=== PATIENT | male | born 2000 | race Caucasian/White ===

== ENCOUNTER 2024-09-13 15:07 | Inpatient (IN) | payer BC ==
[~2024-09-13] VITALS: Ht 172.7 cm; Wt 67.5 kg
[2024-09-13] MEDS: DexAMETHasone SOD PHOS 10MG/1ML VIAL INJ ONE (15:34)
--- NOTE | 2024-09-13 15:35 | ED.PDOC ---
SOB-HPI HPI Comments [age] year old male brought in by family complaining of shortness of breath. Patient reports productive cough with initially dark brown, now green sputum and progressively worsening shortness breath over the past 2 weeks, associated with sore throat, body aches and malaise. Patient states he took amoxicillin over a week ago for the symptoms, however they have not improved. He denies any fever, chest pain or extremity edema. Chief Complaint: Cough Time Seen by MD: 15:12 Primary Care Provider: CHRISSY Reviewed notes: Nurses Notes Information Source: Patient Mode of Arrival: Ambulatory Past Medical History PAST MEDICAL HISTORY: Denies Surgical History: Denies all surgeries Family History Family History: Reviewed,noncontributory to illness Social History Smoker: Non-Smoker Alcohol: Rarely Drugs: Denies Drug Use Lives In: Home All Other Systems: Reviewed and Negative (Comprehensive systems review obtained and negative except for what is stated in the HPI.) Physical Exam General Appearance: No Apparent Distress, Normal HEENT: PERRL/EOMI, Other (mild pharyngeal erythema. No edema, exudate or uvular deviation.) Neck: Full Range of Motion, Normal Inspection, Supple Respiratory: Decreased Breath Sounds, No Accessory Muscle Use, No Respiratory Distress Cardiovascular: No Edema, No JVD, Regular Rate/Rhythm Breast Exam: Deferred Gastrointestinal: Non Tender, Soft Genitalia: Deferred Pelvic: Deferred Rectal: Deferred Extremities: Normal inspection, Normal range of motion, Non-tender, No pedal edema Neurologic: Alert, No Motor Deficits, Normal Affect, Normal Mood, No Sensory Deficits Cerebellar Function: NOT DONE Reflexes: NOT DONE Skin: Dry, Pallor, Warm Lymphatic: NOT DONE Was a procedure done? Was a procedure done?: No Differential Dx Differential Diagnosis: Asthma, Bronchitis, CHF, COPD, Pneumonia, Pulmonary Embolism, URI, Other (Anemia, among others) X-Ray, Labs, Meds, VS Vital Signs Date Time Temp Pulse Resp B/P (MAP) Pulse Ox O2 Delivery O2 Flow Rate FiO2 09/13/24 18:32 72 18 124/78 (93) 99 09/13/24 16:41 78 18 126/71 (89) 98 09/13/24 16:30 18 98 Room Air* 0 21 09/13/24 15:47 18 99 Room Air* 0 21 09/13/24 15:19 97.5 83 18 120/72 (88) 98 Lab Test 09/13/24 17:09 09/13/24 15:45 Range/Units Influenza Type A Antigen Negative Negative Influenza Type B Antigen Negative Negative SARS-CoV-2 Antigen (Rapid) Negative NEGATIVE White Blood Count 8.5 4.4-10.8 10^3/uL Red Blood Count 5.20 4.5-5.90 10^6/uL Hemoglobin 15.7 13.5-17.5 g/dL Hematocrit 46.2 41.0-53.0 % Mean Corpuscular Volume 88.8 80.0-100.0 fL Mean Corpuscular Hemoglobin 30.2 28.0-32.0 pg Mean Corpuscular Hemoglobin Concent 34.0 32.0-36.0 g/dL Red Cell Distribution Width 13.2 11.8-14.3 % Platelet Count 179 140-450 10^3/uL Mean Platelet Volume 8.8 6.9-10.8 fL Neutrophils (%) (Auto) 60.2 37.0-80.0 % Lymphocytes (%) (Auto) 28.0 10.0-50.0 % Monocytes (%) (Auto) 9.6 0.0-12.0 % Eosinophils (%) (Auto) 1.9 0.0-7.0 % Basophils (%) (Auto) 0.3 0.0-2.0 % Neutrophils # (Auto) 5.1 1.6-8.6 10 ^3/uL Lymphocytes # (Auto) 2.4 0.4-5.4 10 ^3/uL Monocytes # (Auto) 0.8 0-1.3 10 ^3/uL Eosinophils # (Auto) 0.2 0-0.8 10 ^3/uL Basophils # (Auto) 0 0-0.2 10 ^3/uL Nucleated Red Blood Cells 0.1 % Sodium Level 144 136-145 mmol/L Potassium Level 3.6 3.5-5.1 mmol/L Chloride Level 108 H 98-107 mmol/L Carbon Dioxide Level 29 20-31 mmol/L Anion Gap 7 5-15 Blood Urea Nitrogen 16 9-23 mg/dL Creatinine 0.97 0.700-1.30 mg/dL Glomerular Filtration Rate Calc 110 >90 mL/min BUN/Creatinine Ratio 16.5 10.0-20.0 Serum Glucose 74 74-106 mg/dL Lactic Acid Level 1.1 0.4-2.0 mmol/L Calcium Level 10.5 H 8.7-10.4 mg/dL B-Type Natriuretic Peptide 8.93 0-100 pg/mL Current Medications Medications (Trade) Dose Ordered Sig/Murphy Route Start Time Stop Time Status Last Admin Ipratropium Fortson (Atrovent Medneb) 0.5 mg ONCE ONCE NEB 09/13/24 15:30 09/13/24 15:31 DC 09/13/24 16:31 Dexamethasone Sodium Phosphate (Decadron Injection) 10 mg ONCE ONCE IM 09/13/24 15:30 09/13/24 15:31 DC 09/13/24 15:46 Albuterol (Ventolin Medneb) 5 mg ONCE ONCE NEB 09/13/24 15:30 09/13/24 15:31 DC 09/13/24 16:31 Ceftriaxone Sodium 50 ml @ 100 mls/hr ONCE ONCE IV 09/13/24 18:15 09/13/24 18:44 DC 09/13/24 18:24 Azithromycin 250 ml @ 125 mls/hr ONCE ONCE IV 09/13/24 18:15 09/13/24 20:14 DC 09/13/24 18:29 Rhythm strip independently interpreted by me: Normal sinus rhythm, rate 83, no ectopy. PROCEDURE(s): CXRP - CHEST PORTABLE REASON: sob, cough ORDER NUMBER(s): [id number], ACCESSION NUMBER(s): [id number] CHEST RADIOGRAPH Indication: sob, cough Technique: Single frontal view of the chest was obtained COMPARISON: None FINDINGS: Lines and Tubes: None Lungs: Right middle lobe opacity suspicious for pneumonia Pleura: No effusion. No pneumothorax. Cardiomediastinal contours: Unremarkable Bones: Unremarkable IMPRESSION: 1. Right middle lobe opacity suspicious for pneumonia. X-Ray, Labs, Meds, VS Comment 24-year-old male with no significant past medical history complaining of productive cough and shortness a breath. Vitals unremarkable Exam remarkable for mild pharyngeal erythema and diminished breath sounds at both bases Rhythm strip independently interpreted by me: Normal sinus rhythm, rate 83, no ectopy. Chest x-ray IMPRESSION: 1. Right middle lobe opacity suspicious for pneumonia. CBC, basic metabolic panel, lactate, BNP, remarkable for any abnormality of acute significance Influenza and COVID tests pending Patient treated with the following in the ED: Albuterol 5 mg/Atrovent 0.5 mg nebulized, dexamethasone 10 mg IM, Rocephin 1 g IV, Zithromax 500 mg IV On re-evaluation, patient stated his symptoms had somewhat improved, vitals were stable. Plan is to hospitalize the patient for IV antibiotics and respiratory support as needed. Time of 1ST Reevaluation: 15:34 Reevaluation 1ST: Unchanged Time of 2ND Reevaluation: 16:41 Reevaluation 2ND: Improved Patient Education/Counseling: Diagnosis, Treatment, Need For Follow Up Family Education/Counseling: No Family Present Departure 1 Departure Time of Disposition: 16:41 Impression: Primary Impression: Pneumonia Qualified Codes: J18.9 - Pneumonia, unspecified organism Additional Impression: Bronchospasm Disposition: ADMITTED INPATIENT [facility] to[facility] Condition: Guarded Critical Care Note Critical Care Time?: No Stability Stability form required: No Heart Score Heart Score: Heart Score Response (Comments) Value History N/A 0 EKG N/A 0 Age N/A 0 Risk Factors N/A 0 Troponin N/A 0 Total 0 SYLWIA MYERS MD Sep 13, 2024 15:35
[2024-09-13] MEDS: DexAMETHasone SOD PHOS 10MG/1ML VIAL INJ IM ONE (15:46)
[2024-09-13 15:47] VITALS: RESP 18; O2SAT 99
[2024-09-13 15:54] LABS: Basophils # (auto) 0 10 ^3/uL (0-0.2); Basophils % (auto) 0.3 % (0.0-2.0); Eosinophils # (auto) 0.2 10 ^3/uL (0-0.8); Eosinophils % (auto) 1.9 % (0.0-7.0); Hematocrit 46.2 % (41.0-53.0); Hemoglobin 15.7 g/dL (13.5-17.5); Lymphocytes # (auto) 2.4 10 ^3/uL (0.4-5.4); Mean Corpuscular Hemoglobin 30.2 pg (28.0-32.0); Mean Corpuscular Volume 88.8 fL (80.0-100.0); Monocytes # (auto) 0.8 10 ^3/uL (0-1.3); Monocytes % (auto) 9.6 % (0.0-12.0); Neutrophils # (auto) 5.1 10 ^3/uL (1.6-8.6); Neutrophils % (auto) 60.2 % (37.0-80.0); Nucleated Red Blood Cells % 0.1 %; Platelet Count (auto) 179 10^3/uL (140-450); Red Cell Distribution Width 13.2 % (11.8-14.3); White Blood Cell 8.5 10^3/uL (4.4-10.8)
--- NOTE | 2024-09-13 15:55 | DVH ---
CHEST RADIOGRAPH Indication: sob, cough Technique: Single frontal view of the chest was obtained COMPARISON: None FINDINGS: Lines and Tubes: None Lungs: Right middle lobe opacity suspicious for pneumonia Pleura: No effusion. No pneumothorax. Cardiomediastinal contours: Unremarkable Bones: Unremarkable IMPRESSION: 1. Right middle lobe opacity suspicious for pneumonia.
[2024-09-13 16:03] LABS: Chloride 108 mmol/L (98-107); Potassium 3.6 mmol/L (3.5-5.1); Sodium 144 mmol/L (136-145)
[2024-09-13 16:04] LABS: Anion Gap 7 (5-15); Calcium 10.5 mg/dL (8.7-10.4); Carbon Dioxide 29 mmol/L (20-31)
[2024-09-13 16:09] LABS: BUN/Creatinine Ratio 16.5 (10.0-20.0); Blood Urea Nitrogen 16 mg/dL (9-23); Glucose 74 mg/dL (74-106)
[2024-09-13] MEDS: ALBUTEROL SULF 2.5 MG/0.5ML(0.5%) NEB SOLN NEB ONE (16:31)
[2024-09-13] MEDS: IPRATROPIUM BROM 0.5 MG/2.5ML INH SOL NEB ONE (16:31)
[2024-09-13 17:49] LABS: COVID19 ANTIGEN SOFIA FIA NEGATIVE (NEGATIVE); Rapid Influenza A Negative (Negative); Rapid Influenza B Negative (Negative)
[2024-09-13] MEDS: cefTRIAXone 1GM/50ML D5W 50 ML IV ONE (18:24)
[2024-09-13] MEDS: AZITHROMYCIN 500MG/ 250ML 250 ML IV ONE (18:29)
[2024-09-13] MEDS ORDERED: NITROGLYCERIN 0.4 MG SL TAB SL PRN (20:45)
[2024-09-13] MEDS ORDERED: DOCUSATE SOD 100 MG CAP PO PRN (20:45)
[2024-09-13] MEDS ORDERED: ACETAMINOPHEN 325 MG TAB PO PRN ×2 (20:45→22:30)
[2024-09-13] MEDS ORDERED: ONDANSETRON HCL 4 MG/2 ML VIAL IV PRN (20:45)
[2024-09-13] MEDS ORDERED: MORPHINE SULFATE INJ 2 MG/ml SYRG IV PRN ×2 (20:45)
[2024-09-13] MEDS: SODIUM CHLOR 0.9% PF (SALINE LOCK) 10ML VIAL/SYR IV SCH (22:07)
--- NOTE | 2024-09-13 22:17 | DVHHPRES ---
History of Present Illness Resident Creating Document: AUSTIN VERA History of Present Illness Patient is 24 years old male with no significant past medical history came with a complaint of sore throat for 2 weeks and cough. As per patient patient started having sore throat 2 weeks ago. Patient also reported having cough with phlegm production initially it was yellowish or dark brown then it turned to green. Patient went to urgent care center on 08/30/2024 was prescribed amoxicillin, Tylenol and cough syrup. Patient to call the medication but his cough is still persisting. Patient still coughing with greenish sputum production. Patient reported feeling short of breath especially when sleeping at night. Patient unable to complete a full sentence during conversation due to short of breath. Patient with failed outpatient treatment. Patient reported any fever or palpitation, chest pain, constipation or diarrhea, acute dysuria, acute joint pain or swelling, sick contact, dysarthria or change in vision. Initial lab workup revealed calcium 10.5, other lab workup with a negative, patient was negative for COVID-19 and flu A and B, CALCIUM 10.5. X-ray revealed right middle to lower lobe opacity. Past Medical History None Past Surgical History None Family History Mom diabetes mellitus Past Social History Occasional alcoholic, denies smoking or drug abuse, lives in home with Review of Systems Review of Systems Allergy- NKDA Patient was seen today at the bedside. Patient cough and shortness of breaths Cardiovascular- deny acute chest pain, palpitation Respiratory- denies wheezing Gastrointestinal- denies any rectal bleeding, nausea or vomiting Musculoskeletal-denies acute joint swelling or tenderness or redness Neurological- denies acute dysarthria, dysphagia, change in vision Psychiatry- denies depression or SI or HI Skin- denies acute rash or purpura Allergies: Coded Allergies: NO KNOWN ALLERGIES (Unverified , 09/13/24) Medications Current Medications Medications Dose Ordered Sig/Murphy Route Start Time Stop Time Status Last Admin Dose Admin Sodium Chloride 10 ml Q8HR IV 09/13/24 22:00 09/13/24 22:07 10 ML Ondansetron HCl 4 mg Q4HP PRN IV 09/13/24 20:45 Docusate Sodium 100 mg BIDPRN PRN PO 09/13/24 20:45 Acetaminophen 650 mg Q6HP PRN PO 09/13/24 20:45 Morphine Sulfate 2 mg Q4HPRN PRN IV 09/13/24 20:45 Nitroglycerin 0.4 mg Q5MINP PRN SL 09/13/24 20:45 Morphine Sulfate 2 mg Q30M PRN IV 09/13/24 20:45 Exam Vital Signs Vital Signs Date Time Temp Pulse Resp B/P (MAP) Pulse Ox O2 Delivery O2 Flow Rate FiO2 09/13/24 18:32 72 18 124/78 (93) 99 09/13/24 16:30 Room Air* 0 21 09/13/24 15:19 97.5 Exam General examination- , alert, oriented, conversant, unable to complete full se ntence due to shortness of breaths HEENT- PEERLA, no acute nasal discharge Cardiovascular- S1-S2 audible, rate and rhythm regular, no murmur Respiratory-, unable to complete full sentence due to shortness of breaths, bronchial breath sound on the right lower lung field Gastrointestinal-nontender, bowel sound+. Nondistended Musculoskeletal-no acute joint swelling or tenderness or redness# Lower extremity- no leg edema Neurological- cranial nerves intact, no acute dysarthria or dysphagia Psychiatry- denies depression or SI or HI Skin- no acute rash or purpura Labs/Xrays Labs Test 09/13/24 17:09 09/13/24 15:45 Range/Units Influenza Type A Antigen Negative Negative Influenza Type B Antigen Negative Negative SARS-CoV-2 Antigen (Rapid) Negative NEGATIVE White Blood Count 8.5 4.4-10.8 10^3/uL Red Blood Count 5.20 4.5-5.90 10^6/uL Hemoglobin 15.7 13.5-17.5 g/dL Hematocrit 46.2 41.0-53.0 % Mean Corpuscular Volume 88.8 80.0-100.0 fL Mean Corpuscular Hemoglobin 30.2 28.0-32.0 pg Mean Corpuscular Hemoglobin Concent 34.0 32.0-36.0 g/dL Red Cell Distribution Width 13.2 11.8-14.3 % Platelet Count 179 140-450 10^3/uL Mean Platelet Volume 8.8 6.9-10.8 fL Neutrophils (%) (Auto) 60.2 37.0-80.0 % Lymphocytes (%) (Auto) 28.0 10.0-50.0 % Monocytes (%) (Auto) 9.6 0.0-12.0 % Eosinophils (%) (Auto) 1.9 0.0-7.0 % Basophils (%) (Auto) 0.3 0.0-2.0 % Neutrophils # (Auto) 5.1 1.6-8.6 10 ^3/uL Lymphocytes # (Auto) 2.4 0.4-5.4 10 ^3/uL Monocytes # (Auto) 0.8 0-1.3 10 ^3/uL Eosinophils # (Auto) 0.2 0-0.8 10 ^3/uL Basophils # (Auto) 0 0-0.2 10 ^3/uL Nucleated Red Blood Cells 0.1 % Sodium Level 144 136-145 mmol/L Potassium Level 3.6 3.5-5.1 mmol/L Chloride Level 108 H 98-107 mmol/L Carbon Dioxide Level 29 20-31 mmol/L Anion Gap 7 5-15 Blood Urea Nitrogen 16 9-23 mg/dL Creatinine 0.97 0.700-1.30 mg/dL Glomerular Filtration Rate Calc 110 >90 mL/min BUN/Creatinine Ratio 16.5 10.0-20.0 Serum Glucose 74 74-106 mg/dL Lactic Acid Level 1.1 0.4-2.0 mmol/L Calcium Level 10.5 H 8.7-10.4 mg/dL B-Type Natriuretic Peptide 8.93 0-100 pg/mL Assessment/Plan Assessment/Plan #Productive cough with sore throat shortness of breathsA likely due to pneumonia Gram-positive versus Gram-negative -Patient unable to complete a full sentence during conversation due to short of breath. -Patient with failed outpatient treatment. -CXR-right lower lung tyler opacity -continue ceftriaxone 1 g IV daily -continue azithromycin 500 mg IV daily -pending sputum CS #Acute pneumonia Gram-positive versus Gram-negative --Patient unable to complete a full sentence during conversation due to short of breath. -Patient with failed outpatient treatment. -CXR-right lower lung tyler opacity -continue ceftriaxone 1 g IV daily -continue azithromycin 500 mg IV daily -pending sputum CS # shortness of breaths likely due to pneumonia --Patient unable to complete a full sentence during conversation due to short of breath. -Patient with failed outpatient treatment. -continue ceftriaxone 1 g IV daily -continue azithromycin 500 mg IV daily -pending sputum CS -nebulization p.r.n. # sore throat -continue Tylenol p.r.n. # hypercalcemia -symptomatic Goals of care/advance care planning; FULL CODE; discussed with the patient >15 minutes PUD prophylaxis: DVT prophylaxis: Patient ambulatory PCP-Dr. Lazo Plan discussed with Dr. Knowles, nursing staff, patient Total time spent on patient evaluation, chart review, assessment and plan, discussion discussion >30 minutes Plan discussed with: Patient Plan discussed with: Patient (RN), Other My Orders Orders - AUSTIN VERA Procedure Category Date Status Time Admit ADMIT 09/13/24 Transmitted 20:40 Code Status CODE 09/13/24 Transmitted 20:40 Sodium Chloride Lock PHA 09/13/24 In Process (Saline Lock Ns) 22:00 Ondansetron Hcl PHA 09/13/24 In Process (Zofran) 20:45 Docusate Sodium PHA 09/13/24 In Process Capsule (Colace 20:45 Complete Blood Count LAB 09/14/24 Verified 04:00 Comprehensive LAB 09/14/24 Verified Metabolic Panel 04:00 Acetaminophen Tablet PHA 09/13/24 In Process (Tylenol Tablet) 20:45 Morphine Sulfate PHA 09/13/24 In Process Injection 20:45 Nitroglycerin PHA 09/13/24 In Process Sublingual (Ntrostat 20:45 Morphine Sulfate PHA 09/13/24 In Process Injection 20:45 Oxygen By Nasal RT 09/13/24 Transmitted Cannula 20:40 Stat Ekg For Chest LINDA 09/13/24 In Process Pain 20:40 Notify Md Of Changes LINDA 09/13/24 In Process From Base 20:40 Property Officer For LINDA 09/13/24 In Process 24 Hours 20:40 Emergency Dysrhythmia LINDA 09/13/24 In Process Protocol 20:40 Rhythm Strips Once LINDA 09/13/24 In Process Every Shift 20:40 Respiratory Culture DORIS 09/13/24 Verified W/ Gs 22:12 Date of Service: Sep 13, 2024 Billing Provider: SAMEER KNOWLES MD Common Visit Codes: [id number] INP/OBS CARE (HIGH) AUSTIN VERA Sep 13, 2024 22:17 SAMEER KNOWLES MD Sep 14, 2024 17:51
[2024-09-13] MEDS ORDERED: guaiFENesin-DM 100/10mg/5ml SYR PO PRN (22:30)
[2024-09-13] MEDS ORDERED: ALBUTEROL SULF 2.5 MG/0.5ML(0.5%) NEB SOLN NEB PRN (22:30)
[2024-09-13 22:46] VITALS: BP 124/78; PULSE 72; RESP 18; TEMP 97.5; O2SAT 98
--- NOTE | 2024-09-14 00:32 | DVHDSRES ---
Discharge Summary Date of Admission Resident Creating Document: AUSTIN VERA Sep 13, 2024 at 20:40 Date of Discharge: Sep 14, 2024 Admitting Diagnosis Cough with shortness of breaths likely due to pneumonia Labs/Diagnostic Data: Laboratory Results Test 09/13/24 17:09 09/13/24 15:45 Influenza Type A Antigen Negative (Negative) Influenza Type B Antigen Negative (Negative) SARS-CoV-2 Antigen (Rapid) Negative (NEGATIVE) White Blood Count 8.5 10^3/uL (4.4-10.8) Red Blood Count 5.20 10^6/uL (4.5-5.90) Hemoglobin 15.7 g/dL (13.5-17.5) Hematocrit 46.2 % (41.0-53.0) Mean Corpuscular Volume 88.8 fL (80.0-100.0) Mean Corpuscular Hemoglobin 30.2 pg (28.0-32.0) Mean Corpuscular Hemoglobin Concent 34.0 g/dL (32.0-36.0) Red Cell Distribution Width 13.2 % (11.8-14.3) Platelet Count 179 10^3/uL (140-450) Mean Platelet Volume 8.8 fL (6.9-10.8) Neutrophils (%) (Auto) 60.2 % (37.0-80.0) Lymphocytes (%) (Auto) 28.0 % (10.0-50.0) Monocytes (%) (Auto) 9.6 % (0.0-12.0) Eosinophils (%) (Auto) 1.9 % (0.0-7.0) Basophils (%) (Auto) 0.3 % (0.0-2.0) Neutrophils # (Auto) 5.1 10 ^3/uL (1.6-8.6) Lymphocytes # (Auto) 2.4 10 ^3/uL (0.4-5.4) Monocytes # (Auto) 0.8 10 ^3/uL (0-1.3) Eosinophils # (Auto) 0.2 10 ^3/uL (0-0.8) Basophils # (Auto) 0 10 ^3/uL (0-0.2) Nucleated Red Blood Cells 0.1 % Sodium Level 144 mmol/L (136-145) Potassium Level 3.6 mmol/L (3.5-5.1) Chloride Level 108 mmol/L (98-107) Carbon Dioxide Level 29 mmol/L (20-31) Anion Gap 7 (5-15) Blood Urea Nitrogen 16 mg/dL (9-23) Creatinine 0.97 mg/dL (0.700-1.30) Glomerular Filtration Rate Calc 110 mL/min (>90) BUN/Creatinine Ratio 16.5 (10.0-20.0) Serum Glucose 74 mg/dL (74-106) Lactic Acid Level 1.1 mmol/L (0.4-2.0) Calcium Level 10.5 mg/dL (8.7-10.4) B-Type Natriuretic Peptide 8.93 pg/mL (0-100) Other Laboratory Tests 09/13/24 15:45 Brief Hx & Hospital Course: Patient is 24 years old male with no significant past medical history came with a complaint of sore throat for 2 weeks and cough. As per patient patient started having sore throat 2 weeks ago. Patient also reported having cough with phlegm production initially it was yellowish or dark brown then it turned to green. Patient went to urgent care center on 08/30/2024 was prescribed amoxicillin, Tylenol and cough syrup. Patient to call the medication but his cough is still persisting. Patient still coughing with greenish sputum production. Patient reported feeling short of breath especially when sleeping at night. Patient reported any fever or palpitation, chest pain, constipation or diarrhea, acute dysuria, acute joint pain or swelling, sick contact, dysarthria or change in vision. Initial lab workup revealed calcium 10.5, other lab workup with a negative, patient was negative for COVID-19 and flu A and B, calcium 10.5. X-ray revealed right middle to lower lobe opacity. Patient was treated with ceftriaxone azithromycin with nebulization p.r.n. patient left AMA. Patient's condition was undetermined on discharge as patient left AMA Condition at Discharge: Undetermined Final Diagnosis/Problems List Productive cough with sore throat , short of breath likely due to pneumonia Gram-positive versus Gram-negative # acute pneumonia Gram-positive versus Gram-negative # shortness of breaths likely due to pneumonia # sore thought # hypercalcemia Discharge Disposition: AMA Discharge Statement: "Patient was advised to return to the ER or call 911 if any headaches, dizziness, shortness of breath, chest pain, abdominal pain, bleeding, fevers, or worsening of medical condition. Patient was counseled about treatment plan, medications, possible side effects, patientverbalized understanding. All questions were answered to the best of my ability. This discharge took greater then 30 minutes in planning, reviewing documentation, counseling the patient, and discussing with other team members." ASSESSMENT ASSESSMENT Assessment AUSTIN VERA RESIDENT Sep 14, 2024 00:32
[2024-09-14 04:00] VITALS: PULSE 70; RESP 18; O2SAT 100
[2024-09-14 06:08] LABS: Basophils # (auto) 0 10 ^3/uL (0-0.2); Basophils % (auto) 0.1 % (0.0-2.0); Eosinophils # (auto) 0 10 ^3/uL (0-0.8); Hematocrit 44.2 % (41.0-53.0); Hemoglobin 15.2 g/dL (13.5-17.5); Lymphocytes # (auto) 1.2 10 ^3/uL (0.4-5.4); Lymphocytes % (auto) 11.2 % (10.0-50.0); Mean Corpuscular Hemoglobin 30.3 pg (28.0-32.0); Mean Corpuscular Hgb Conc. 34.3 g/dL (32.0-36.0); Mean Corpuscular Volume 88.3 fL (80.0-100.0); Monocytes # (auto) 0.5 10 ^3/uL (0-1.3); Neutrophils # (auto) 8.8 10 ^3/uL (1.6-8.6); Neutrophils % (auto) 83.7 % (37.0-80.0); Nucleated Red Blood Cells % 0.1 %; Platelet Count (auto) 186 10^3/uL (140-450); Red Blood Cells 5.01 10^6/uL (4.5-5.90); Red Cell Distribution Width 13.1 % (11.8-14.3); White Blood Cell 10.5 10^3/uL (4.4-10.8)
[2024-09-14 06:32] LABS: Alanine Aminotransferase 15 U/L (7-40); Alkaline Phosphatase 75 U/L (46-116); Anion Gap 8 (5-15); Aspartate Aminotransferase 14 U/L (13-40); BUN/Creatinine Ratio 18.5 (10.0-20.0); Blood Alcohol < 3.0 mg/dL (<10); Blood Urea Nitrogen 15 mg/dL (9-23); Calcium 10.8 mg/dL (8.7-10.4); Carbon Dioxide 25 mmol/L (20-31); Chloride 108 mmol/L (98-107); Glucose 122 mg/dL (74-106); Potassium 4.2 mmol/L (3.5-5.1); Sodium 141 mmol/L (136-145)
[2024-09-14 06:33] LABS: Bilirubin, Total 0.5 mg/dL (0.2-1.0); Total Protein 7.7 g/dL (5.7-8.2)
[2024-09-14 06:41] LABS: CRP High Sensitivity 1.27 mg/dL (<1.0)
[2024-09-14 07:47] VITALS: PULSE 75; RESP 18; TEMP 97.6; O2SAT 100
[2024-09-14 10:10] LABS: Erythrocyte Sedimentation Rate 3 mm/hr (0-20)
[2024-09-14 12:08] VITALS: BP 124/73; PULSE 71; RESP 17; O2SAT 99
--- NOTE | 2024-09-14 14:56 | DVHDSRES ---
Discharge Summary Date of Admission Resident Creating Document: ANGELIQUE LAGOS RESIDENT Sep 13, 2024 at 20:40 Date of Discharge: Sep 14, 2024 Admitting Diagnosis #Productive cough with sore throat shortness of breaths likely due to pneumonia Gram-positive versus Gram-negative #Acute pneumonia Gram-positive versus Gram-negative # shortness of breaths likely due to pneumonia # sore throat # hypercalcemia Wounds: no wounds Labs/Diagnostic Data: Laboratory Results Test 09/14/24 08:38 09/14/24 06:19 09/14/24 05:32 09/13/24 17:09 Troponin I High Sensitivity < 3 ng/L (</=54) White Blood Count 10.5 10^3/uL (4.4-10.8) Red Blood Count 5.01 10^6/uL (4.5-5.90) Hemoglobin 15.2 g/dL (13.5-17.5) Hematocrit 44.2 % (41.0-53.0) Mean Corpuscular Volume 88.3 fL (80.0-100.0) Mean Corpuscular Hemoglobin 30.3 pg (28.0-32.0) Mean Corpuscular Hemoglobin Concent 34.3 g/dL (32.0-36.0) Red Cell Distribution Width 13.1 % (11.8-14.3) Platelet Count 186 10^3/uL (140-450) Mean Platelet Volume 9.0 fL (6.9-10.8) Neutrophils (%) (Auto) 83.7 % (37.0-80.0) Lymphocytes (%) (Auto) 11.2 % (10.0-50.0) Monocytes (%) (Auto) 5.0 % (0.0-12.0) Eosinophils (%) (Auto) 0.0 % (0.0-7.0) Basophils (%) (Auto) 0.1 % (0.0-2.0) Neutrophils # (Auto) 8.8 10 ^3/uL (1.6-8.6) Lymphocytes # (Auto) 1.2 10 ^3/uL (0.4-5.4) Monocytes # (Auto) 0.5 10 ^3/uL (0-1.3) Eosinophils # (Auto) 0 10 ^3/uL (0-0.8) Basophils # (Auto) 0 10 ^3/uL (0-0.2) Nucleated Red Blood Cells 0.1 % Erythrocyte Sedimentation Rate 3 mm/hr (0-20) Sodium Level 141 mmol/L (136-145) Potassium Level 4.2 mmol/L (3.5-5.1) Chloride Level 108 mmol/L (98-107) Carbon Dioxide Level 25 mmol/L (20-31) Anion Gap 8 (5-15) Blood Urea Nitrogen 15 mg/dL (9-23) Creatinine 0.81 mg/dL (0.700-1.30) Glomerular Filtration Rate Calc 125 mL/min (>90) BUN/Creatinine Ratio 18.5 (10.0-20.0) Serum Glucose 122 mg/dL (74-106) Calcium Level 10.8 mg/dL (8.7-10.4) Total Bilirubin 0.5 mg/dL (0.2-1.0) Aspartate Amino Transferase (AST) 14 U/L (13-40) Alanine Aminotransferase (ALT) 15 U/L (7-40) Alkaline Phosphatase 75 U/L (46-116) C-Reactive Protein High Sensitivity 1.27 mg/dL (<1.0) Total Protein 7.7 g/dL (5.7-8.2) Albumin 5.0 g/dL (3.2-4.8) Plasma/Serum Blood Alcohol < 3.0 mg/dL (<10) Influenza Type A Antigen Negative (Negative) Influenza Type B Antigen Negative (Negative) SARS-CoV-2 Antigen (Rapid) Negative (NEGATIVE) Test 09/13/24 15:45 Lactic Acid Level 1.1 mmol/L (0.4-2.0) B-Type Natriuretic Peptide 8.93 pg/mL (0-100) Other Laboratory Tests 09/14/24 05:32 Brief Hx & Hospital Course: Patient is a 24-year-old male with no significant past medical history came to the ED with a chief complaint of productive cough for the last 2 weeks. Patient reported that about 2 weeks ago he started having cough initially dry and then productive of brownish sputum. Patient went to an urgent care clinic where he was prescribed augmentin. Patient is a very that is cough did not improve and he was producing whitish in the greenish sputum. Patient also reported sore throat with no difficulty swallowing. Patient's voice was hoarse. Patient was started on IV antibiotics. Patient was not medically cleared but he left against medical advice. Consults/Reason for consult No consultation Operations or Procedures Chest x-ray showing right middle lobe opacity suspicious for pneumonia Condition at Discharge: Undetermined Final Diagnosis/Problems List Productive cough with sore throat , short of breath likely due to pneumonia Gram-positive versus Gram-negative # acute pneumonia Gram-positive versus Gram-negative # shortness of breaths likely due to pneumonia # sore thought # hypercalcemia Discharge Disposition: AMA Discharge Statement: "Patient was advised to return to the ER or call 911 if any headaches, dizziness, shortness of breath, chest pain, abdominal pain, bleeding, fevers, or worsening of medical condition. Patient was counseled about treatment plan, medications, possible side effects, patientverbalized understanding. All questions were answered to the best of my ability. This discharge took greater then 30 minutes in planning, reviewing documentation, counseling the patient, and discussing with other team members." ASSESSMENT ASSESSMENT Assessment Productive cough with sore throat , short of breath likely due topneumonia Gram- positive versus Gram-negative# acute pneumonia Gram-positive versus Gram- negative# shortness of breaths likely due to pneumonia# sore thought# hypercalcemia ANGELIQUE LAGOS RESIDENT Sep 14, 2024 14:56
[2024-09-14] MEDS ORDERED: cefTRIAXone 1GM/50ML D5W 50 ML IV SCH (21:00)
[2024-09-14] MEDS ORDERED: AZITHROMYCIN 500MG/ 250ML 250 ML IV SCH (22:00)
== END 2024-09-14 12:15 | disposition left against medical advice (07) | DRG 179 ==
LOC: ER 15:07 → OVERFLOW 20:40
PROVIDERS: ADMIT Student in an Organized Health Care Education/Training Program; ATTEND Student in an Organized Health Care Education/Training Program
DX: J15.69 Pneumonia due to other Gram-negative bacteria (principal); J15.9 Unspecified bacterial pneumonia; J98.01 Acute bronchospasm; Z20.822 Contact with and (suspected) exposure to COVID-19; Z53.29 Procedure and treatment not carried out because of patient's decision for other reasons; E83.52 Hypercalcemia; J02.9 Acute pharyngitis, unspecified; Z79.899 Other long term (current) drug therapy
CPT/HCPCS: 36415; 71045; 80048; 80053; 80320; 82164; 82306; 83605; 83880; 83970; 84484; 85025; 85652; 86141; 87040; 87426; 87804; 94640; 96365; 96375; G0378; J1100